=== PATIENT | female | born 1975 | race African-American/Black ===

== ENCOUNTER 2017-02-05 07:31 | Emergency (ER) | payer MEDICAID ==
[~2017-02-05] VITALS: Ht 172.7 cm; Wt 88.5 kg
[2017-02-05 07:37] VITALS: BP 116/67
[2017-02-05] MEDS ORDERED: ADULT WAL-100 MG/5 M ORAL (08:12)
[2017-02-05] MEDS ORDERED: ALBUTEROL SULF8.5 GM INH (08:12)
[2017-02-05 08:15] VITALS: BP 122/71
--- NOTE | 2017-02-05 08:16 | Emergency Room Report ---
History of Present Illness General Chief Complaint: Upper Respiratory Illness Source: Patient Present Illness HPI This is a 41-year-old female who presented after increased cough and nasal congestion. Patient had reported having increased nighttime had difficulty breathing. Associated with nonproductive cough. The patient denied any fever. As reported having a mild sore throat. She denies any chest pain or history of smoking. She denies any leg pain. Allergies: Coded Allergies: No Known Allergies (Unverified , 02/05/17) Patient History Past Medical History: see triage record Last Menstrual Period: 01/23/17 Reviewed Nursing Documentation: PMH: Agreed, PSxH: Agreed Nursing Documentation-PMH Past Medical History: No Stated History Review of Systems All Other Systems: negative except mentioned in HPI Physical Exam Vital Signs Date Time Temp Pulse Resp B/P (MAP) Pulse Ox O2 Delivery O2 Flow Rate FiO2 02/05/17 07:37 98.4 92 18 116/67 99 Room Air General Appearance: well appearing, no apparent distress, alert, GCS 15 Head: normocephalic, atraumatic ENT: hearing grossly normal, normal voice Neck: full range of motion, supple Respiratory: no respiratory distress, speaking full sentences Cardiovascular #1: normal inspection, regular rate, rhythm Musculoskeletal: no calf tenderness Neurologic: normal gait Psychiatric: mood/affect normal Skin: no rash Medical Decision Making Diagnostic Impression: Primary Impression: Viral respiratory illness ER Course Patient presented for cough. Differential diagnosis included but was not limited to bronchitis, pneumonia, pulmonary embolism, pericarditis, asthma, foreign body. Patient's benign exam and does not appear to require any further imaging or laboratory testing at this time. The patient is advised to follow up with primary care doctor in the next few days. Patient is advised to return if any worsening condition or if any changes in status that are concerning. This report is dictated with [employer] skin installer software which may occasionally lead to discrepancies related to use of this software. Last Vital Signs Date Time Temp Pulse Resp B/P (MAP) Pulse Ox O2 Delivery O2 Flow Rate FiO2 02/05/17 07:37 98.4 92 18 116/67 99 Room Air Status: improved Disposition: HOME, SELF-CARE Condition: Stable Scripts Guaifenesin* (ADULT WAL-TUSSIN*) 100 Mg/5 Ml Liquid 10 ML ORAL Q4H, #120 ML Prov: Tom Weston 12/30/17 Albuterol Sulfate* (ALBUTEROL SULFATE MDI*) 8.5 Gm Hfa.aer.ad 2 PUFF INH Q6H for For Cough, #1 EA 0 Refills Prov: Tom Weston 02/05/17 Referrals: LETIREFERRING (PCP) Patient Instructions: Upper Respiratory Infection, Adult Tom Weston Feb 05, 2017 08:15
== END 2017-02-05 08:16 | disposition home or self-care (01) ==
LOC: EMR 08:13
DX: B34.9 Viral infection, unspecified (principal)
CPT/HCPCS: 99284

== ENCOUNTER 2017-07-11 19:56 | Emergency (ER) | payer MEDICAID ==
[~2017-07-11] VITALS: Ht 172.7 cm; Wt 88.5 kg
[~2017-07-11 19:56] MED LIST: ADULT WAL-100 MG/5 M ORAL; ALBUTEROL SULF8.5 GM INH
[2017-07-11 20:29] VITALS: BP 110/67
[2017-07-11] MEDS ORDERED: NKM (20:29)
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
[2017-07-11] MEDS ORDERED: IBUPROFEN600 MG ORAL (21:48)
[2017-07-11 22:09] VITALS: BP 112/70
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
== END 2017-07-11 22:10 | disposition home or self-care (01) ==
LOC: EMR 21:00
DX: S62.501A Fracture of unspecified phalanx of right thumb, initial encounter for closed fracture (principal); S60.111A Contusion of right thumb with damage to nail, initial encounter; V43.52XA Car driver injured in collision with other type car in traffic accident, initial encounter; Y93.9 Activity, unspecified; Y92.410 Unspecified street and highway as the place of occurrence of the external cause
CPT/HCPCS: 11740; 29130; 99283